=== PATIENT | female | born 1985 | race Caucasian/White ===

== ENCOUNTER → 2016-09-01 | Outpatient (CLI) | payer MEDICAID ==
[~2016-09-01] MED LIST: AZIT-21 PO; BROM473L42 PO
--- OUTSIDE RECORDS SUMMARY | 2016-09-01 13:05 | XMS REPORT | Continuity of Care Document ---
Author Author [facility] Organization [facility] Address Unknown Phone Unavailable Care Team Providers Care Air Cargo Agent Name Role Phone CRISTO KNIGHT DO PCP Insurance Providers Payer Name Policy Number Subscriber Name Relationship Self Pay Cristel Hayes [id number] Self / Same As Patient Advance Directives Directive Response Recorded Date/Time Advance Directives No 06/10/14 11:25am Resuscitation Status Full Code 06/10/14 11:25am Problems Medical Problems Problem Onset Date Status Viral URI with cough Unknown Active Medications Medication Dose Route Sig Days/Qty Instructions Order Date Discontinued Date Status Brompheniram/Phenylephrine/Dm 10 Ml PO EVERY 8HRS PRN CONGESTION 120 Qty 06/10/14 Active Azithromycin (Zpak) 2 Tab PO TODAY 6 Qty 2 tabs by mouth on day 1, then 1 tab by mouth daily 4 days 06/10/14 Active Social History Social History Problem Response Recorded Date/Time Alcohol Use Occasionally Uses 06/10/2014 11:25am Recreational Drug Use No 06/10/2014 11:25am Recent Foreign Travel No 06/10/2014 11:21am Smoking Status Never a Smoker 06/10/2014 11:25am Query Response Start Date Stop Date Smoking Status Never a Smoker Hospital Discharge Instructions No hospital discharge instructions. Plan of Care No plan of care. Functional Status No functional status results. Allergies, Adverse Reactions, Alerts Allergen Type Severity Reaction Status Last Updated No Known Drug Allergies Active 06/10/14 Immunizations Name Given Type Date of Influenza Vaccine 03/28/14 Historical Vital Signs Acute Vital Signs Vital Response Date/Time Temperature (Fahrenheit) 97 degrees F (97.6 - 99.5) Temperature (Calculated Celsius) 36.1140 degrees C (36.4 - 37.5) Temperature Source Temporal Pulse Rate (adult) 121 bpm (60 - 90) Respiratory Rate 18 bpm (12 - 24) O2 Sat by Pulse Oximetry 98 % (88 - 100) Blood Pressure 152/101 mm Hg Pain Pain Intensity 5 Height (Feet) 5 feet Height (Inches) 3 inches Height (Calculated Centimeters) 160.165763 cm Weight (Pounds) 290 pounds Weight (Calculated Kilograms) 131.115649 kilograms Calculated BMI 51.37 Results No known relevant diagnostic tests, laboratory data and/or discharge summary. Procedures No known history of procedures. Encounters Encounter Location Date/Time Departed Emergency Room [facility] 06/10/14 10:35am Recent Diagnosis
--- NOTE | 2016-09-01 18:56 | Diagnostic Imaging Report ---
OB ultrasound. INDICATION: survey. There are no prior studies available for comparison. Reportedly, the patient has had a previous OB ultrasound exam which suggests that the estimated gestational age of the fetus was 18 weeks plus or minus one week. On this study, there is a single live fetus in cephalic presentation. heart motion was noted and a rate of 155 BPM was recorded. There were no abnormalities identified. The growth parameters are fairly uniform. The growth parameters are as follows: BPD: 4.46, 19 weeks 4 days Head Circumference: 16.55 19 weeks 2 days Abdominal circumference: 12.93 18 weeks 4 days Femur length: 2.88. The estimated weight is 255 gm plus or minus 37 g. The LMP percentile is 38%. The sonographic EDC by this exam is 01/25/2017. The placenta is posterior and there is no previa. The amniotic fluid volume is within normal limits. The cervix was identified and measures 3.9 cm in length. IMPRESSION: 1. There is a single live fetus approximately 19 weeks 1 day gestation plus or minus 1.5 weeks. EDC is 01/25/2017. 2. There are no abnormalities identified. 3. The growth parameters are fairly uniform. The estimated weight is in the 38th percentile. Dictated by: Dictated on workstation # [id number]
== END ==
LOC: RAD 13:01
PROVIDERS: ATTEND Obstetrics & Gynecology
DX: Z36 Encounter for antenatal screening of mother (principal); Z3A.19 19 weeks gestation of pregnancy
CPT/HCPCS: 76805

== ENCOUNTER → 2016-09-29 | Outpatient (CLI) | payer MEDICAID ==
--- NOTE | 2016-09-29 19:24 | Diagnostic Imaging Report ---
EXAMINATION: OB ultrasound. INDICATION: Check growth. FINDINGS: The previous OB ultrasound exam of 09/01/2016 noted a single live fetus of approximately 19 weeks 1 day gestation +/- 1 week. On this exam, the fetus is again visualized. The fetus is cephalic in presentation. heart motion is noted and a rate of 133 bpm is recorded. There are no abnormalities identified. The growth parameters are fairly uniform. The growth parameters are as follows: BPD: 5.79, 23 weeks 6 days. Head circumference: 21.28, 23 weeks 3 days. Abdominal circumference: 18.39, 23 weeks 2 days. Femur length: 4.20, 23 weeks 5 days. The estimated weight is 593 g. The LMP percentile is 71%. On the prior exam, the LMP percentile was 38%. The placenta is posterior and there is no previa. The amniotic fluid volume is not calculated, but the amniotic fluid appears to be within normal limits. The cervix is visualized. There is a suggestion of some funneling of the fluid into the cervix. The cervix measures approximately 3.1 cm in length (normal 3 cm or greater). IMPRESSION: 1. There is a single live fetus of approximately 23 weeks 1 day gestation, +/- 1.5 weeks. The EDC remains January 25, 2017. 2. The growth parameters have progressed as expected since the prior study tending towards the higher side of normal. 3. There is a suggestion of some funneling of the fluid into the cervix. The length of the cervix is still within normal limits, but it may prove worthwhile to have a short-term (2-4 weeks) follow-up ultrasound exam for further evaluation of this finding. 4. These results were discussed with Dr. Manda Kurtz. Dictated by: Dictated on workstation # [id number]
== END ==
LOC: RAD 13:11
PROVIDERS: ATTEND Obstetrics & Gynecology
DX: E51.9 Thiamine deficiency, unspecified (principal); Z98.84 Bariatric surgery status
CPT/HCPCS: 76816

== ENCOUNTER → 2016-11-25 | Outpatient (CLI) | payer MEDICAID ==
--- NOTE | 2016-11-25 17:02 | Diagnostic Imaging Report ---
INDICATION: Assess dates. TECHNIQUE: Multiple real-time grayscale images were obtained over the gravid uterus. COMPARISON: 09/29/2016. FINDINGS: See below for measurements. Biometrical measurements are as follows: Biparietal 8.2 cm, age 32 weeks 6 days. Head circumference 29.3 cm, age 32 weeks 3 days. Abdominal circumference 28.6 cm, age 32 weeks 5 days. Femur length 6.2 cm, age 32 weeks 0 days. Sonographic estimate age: 32 weeks 4 days. Sonographic estimated date of delivery: 01/16/17. Estimated Weight: 1961 gm (+/- 286 gm). LMP percentile: 83%. heart rate: Cardiac motion is identified, however, the heart rate was not assessed. number: 1 of 1. IMPRESSION: 1. growth measurements are as above. Dictated by: Dictated on workstation # [id number]
== END ==
LOC: RAD 13:05
PROVIDERS: ATTEND Obstetrics & Gynecology
DX: O99.843 Bariatric surgery status complicating pregnancy, third trimester (principal); Z90.3 Acquired absence of stomach [part of]; Z3A.32 32 weeks gestation of pregnancy
CPT/HCPCS: 76816

== ENCOUNTER 2017-01-20 05:44 | Inpatient (IN) | payer MEDICAID ==
[~2017-01-20] VITALS: Ht 157.5 cm; Wt 76.2 kg
[2017-01-20] VITALS (32 sets, daily range): BP systolic 109–153; BP diastolic 58–97
[~2017-01-20 05:44] MED LIST changes: +D5 LR IV SOLUTION 1,000 ML IV ONE
[2017-01-20] MEDS ORDERED: D5 LR IV SOLUTION 1,000 ML IV SCH (05:48)
[2017-01-20] MEDS ORDERED: OXYTOCIN/NORMAL SALINE 500 ML IV SCH ×2 (05:48→14:03)
[2017-01-20] MEDS ORDERED: MINERAL OIL CONCENTRATE 99.9% 15 ML UDC TOP PRN (06:00)
[2017-01-20] MEDS ORDERED: CATHETER FLUSH 10 ML SYR IV SCH (06:00)
[2017-01-20 06:28] LABS: BASOPHILS % (AUTO) 0 % (0-10); EOSINOPHILS % (AUTO) 0 % (0-10); LYMPHOCYTES # (AUTO) 1.5 X 10^3 (1.0-4.0); LYMPHOCYTES % (AUTO) 22 % (12-44); MEAN CORPUSCULAR HEMOGLOBIN 30 PG (25-34); MEAN CORPUSCULAR HGB CONC 33 G/DL (32-36); MEAN CORPUSCULAR VOLUME 90 FL (80-99); MEAN PLATELET VOLUME 11.9 FL (7.4-10.4); MONOCYTES # (AUTO) 0.8 X 10^3 (0.0-1.0); MONOCYTES % (AUTO) 11 % (0-12); NEUTROPHILS # (AUTO) 4.6 X 10^3 (1.8-7.8); NEUTROPHILS % (AUTO) 66 % (42-75); PLATELET COUNT 211 10^3/uL (130-400); RED BLOOD COUNT 3.99 10^6/uL (4.35-5.85); RED CELL DISTRIBUTION WIDTH 13.9 % (10.0-14.5)
[2017-01-20] MEDS ORDERED: SUFENTA 0.6MCG/ML BUPIVA 0.125 100 ML ONE (06:53)
[2017-01-20] MEDS ORDERED: PREN-37 PO (06:56)
[2017-01-20] MEDS ORDERED: CALC600T12 PO (06:59)
[2017-01-20] MEDS ORDERED: FERR-84 PO (06:59)
[2017-01-20] MEDS ORDERED: BUPIVACAINE 0.25% 30 ML (SENSORCAINE) VIAL ONE (07:10)
[2017-01-20] MEDS ORDERED: LACTATED RINGERS 1,000 ML IV ONE (07:47)
[2017-01-20] MEDS ORDERED: EPIDURAL (SUFENTA 0.6MCG/ML BUPIVA 0.125%) 100 ML BAG EPI SCH (08:00)
[2017-01-20] MEDS ORDERED: NALOXONE 0.4 MG/ML 1 ML (NARCAN) VIAL IV PRN (08:00)
[2017-01-20] MEDS ORDERED: ONDANSETRON 4 MG/2 ML (SDV) Z0FRAN IV PRN (08:00)
--- NOTE | 2017-01-20 08:22 | History & Physical-OB ---
OB - Chief Complaint & HPI Date/Time Date of Admission: Date of Admission: Jan 20, 2017 at 05:44 Time Seen by Provider: 07:30 Chief Complaint/History OB-Reason for Admission/Chief: Induction of Labor Hx : 4 Hx Para: 2 Expected Date of Delivery: Jan 27, 2017 Gestational Age in Weeks: 39 Other reason for admission: 31 y/o @ 39w0d by L=11, here for elective IOL. c/b recent sleeve gastrectomy with thiamine, calcium and vit D deficiency (corrected) as well as RNI status. Denies complaints this AM. Fetus active, no LOF VB. Occ ctx. History of Labs AB+ Antibody neg RNI Hep B/C neg/neg HIV neg RPR NR GC/CT neg/neg GBS neg Allergies and Home Medications Allergies Coded Allergies: No Known Drug Allergies (Unverified , 06/10/14) Home Medications Calcium Carbonate 600 Mg Tablet, 600 MG PO DAILY, (Reported) Ferrous Sulfate 325 Mg Tablet, 325 MG PO DAILY, (Reported) Vit/Iron Fumarate/FA 1 Each Tablet, 1 EACH PO DAILY, (Reported) OB - History Hx of Present Care: Yes Ultrasounds: Normal mid trimester US Obstetrical Complications: None Medical Complications: Other (see above) Information Induced Hypertension: No Maternal Gestational Diabetes: No Hemorrhage: No Obstetrical History Hx : 4 Hx Para: 2 Patient Past Medical History see above HPI Social History/Family History HIV/AIDS: No Recent Infectious Disease Expo: No Alcohol Use: Denies Use Immunizations Tetanus Booster (TDap): Less than 5yrs Date of Influenza Vaccine: Mar 28, 2014 Rubella: not immune RPR/VDRL: Negative GBS Status: Negative HBsAG: Negative OB - Admission Exam Physical Exam Date Seen by Provider: Jan 20, 2017 Time Seen by Provider: 07:30 Vitals: Vital Signs 01/20/17 07:00 Temp 98.0 B/P (MAP) 120/81 HEENT: NCAT Heart: Rhythm Normal Lungs: Clear Abdomen: Gravid Cervical Dilatation: 5cm Effacement: 75% Station: -1 Membranes: Ruptured Amniotic Fluid: Clear Heart Rate: 130's Accelerations: Accelerations Present Decelerations: No Decelerations Short Term Variability: Present Paint Prep Technician Variability: Average (6-25) Contractions on Admission: 6-10 Minutes Apart Rizvi Scoring Tool (Modified) Dilation (cm): >5cm (3) Effacement (%): 51-79% (2) Descent/Station: -1,0 (2) Cervix Consistency: Soft (2) Cervix Position: Anterior (2) Add 1 point for: Each previous vaginal delivery (1) Rizvi Score: 13 Labs Laboratory Tests Test 01/20/17 06:08 Range/Units White Blood Count 7.0 4.3-11.0 10^3/uL Red Blood Count 3.99 L 4.35-5.85 10^6/uL Hemoglobin 12.0 11.5-16.0 G/DL Hematocrit 36 35-52 % Mean Corpuscular Volume 90 80-99 FL Mean Corpuscular Hemoglobin 30 25-34 PG Mean Corpuscular Hemoglobin Concent 33 32-36 G/DL Red Cell Distribution Width 13.9 10.0-14.5 % Platelet Count 211 130-400 10^3/uL Mean Platelet Volume 11.9 H 7.4-10.4 FL Neutrophils (%) (Auto) 66 42-75 % Lymphocytes (%) (Auto) 22 12-44 % Monocytes (%) (Auto) 11 0-12 % Eosinophils (%) (Auto) 0 0-10 % Basophils (%) (Auto) 0 0-10 % Neutrophils # (Auto) 4.6 1.8-7.8 X 10^3 Lymphocytes # (Auto) 1.5 1.0-4.0 X 10^3 Monocytes # (Auto) 0.8 0.0-1.0 X 10^3 Eosinophils # (Auto) 0.0 0.0-0.3 10^3/uL Basophils # (Auto) 0.0 0.0-0.1 10^3/uL OB - Assessment/Plan/Diagnosis Plan Plan: Induction Other Plan 31 y/o @ 39w0d here for elective IOL GBS neg RNI H/o sleeve gastrectomy close interval to with thiamine, vit D and calcium deficiencies - corrected, adequate growth AROM with clear fluid Will augment with pitocin if no change ASVD HAYLEY OREILLY MD Jan 20, 2017 08:22
--- NOTE | 2017-01-20 12:20 | OB Labor & Delivery Record ---
Vag Delivery Note Vag Delivery Note Date of Delivery: 01/20/17 Preoperative Diagnosis: Nydia Carey is a 31 y/o @ 39w0d with elective IOL, GBS neg Postoperative Diagnosis: Same Surgeon: Hayley Kurtz MD Anesthesia: Epidural Delivery Type: Spontaneous vaginal delivery Findings: Viable male infant, apgars 9/9, weight 8lb1oz Lacerations: periclitoral abrasion, hemostatic Intact placenta with 3 vessel cord. No nuchal cord, body cord or shoulder dystocia Estimated Blood Loss: 300 ml Complications: None Condition: Stable Description of Procedure: The patient is a 31 y/o who presented @ 39w0d for elective IOL. She was admitted and informed consent was obtained. Her labor course was remarkable for epidural for analgesia, AROM with clear fluid and pitocin for induction. She progressed to complete dilatation and began to push. She was then set up for delivery. The 's head was delivered atraumatically in the occiput anterior position. The shoulders and remainder of the infant's body were then delivered without difficulty. Upon delivery, the head was held below the level of the perineum and the mouth and nares were bulb suctioned. The cord was doubly clamped and cut after a pause of 30-60 seconds during which he was placed on his mother's chest. An intact placenta with 3- vessel cord delivered via [place] and there was found to be minimal bleeding. Vigorous fundal massage was performed and the fundus was found to be firm. IV oxytocin was given. Examination of the vagina and perineum revealed a small periclitoral abrasion which was hemostatic. Following the repair, sponge, instrument and needle counts were correct. Mom and baby were both in stable condition in the labor suite. Vitals - Labs Vital Signs - I&O Vital Signs Date Time Temp Pulse Resp B/P (MAP) Pulse Ox O2 Delivery O2 Flow Rate FiO2 01/20/17 11:55 98.5 109 18 128/60 Room Air 01/20/17 11:40 98.2 95 18 114/70 Room Air 01/20/17 11:25 98.1 95 20 115/72 Room Air 01/20/17 11:10 95 20 116/72 Room Air 01/20/17 10:55 110 20 121/77 Room Air 01/20/17 10:40 98 20 121/80 Room Air 01/20/17 10:25 90 18 115/77 Room Air 01/20/17 10:10 96 18 113/70 Room Air 01/20/17 09:55 89 18 116/72 99 Room Air 01/20/17 09:40 90 18 109/66 99 Room Air 01/20/17 09:25 95 18 113/75 99 Room Air 01/20/17 09:10 101 16 110/71 99 Room Air 01/20/17 08:55 89 16 111/73 99 Room Air 01/20/17 08:40 89 18 115/72 99 Room Air 01/20/17 08:23 88 18 113/69 99 Room Air 01/20/17 08:05 90 16 121/72 99 Room Air 01/20/17 08:00 89 16 123/77 99 Room Air 01/20/17 07:55 129 18 113/77 99 Room Air 01/20/17 07:50 125 16 116/75 99 Room Air 01/20/17 07:45 86 16 119/75 99 Room Air 01/20/17 07:40 101 16 121/84 100 Room Air 01/20/17 07:34 98 18 122/86 100 Room Air 01/20/17 07:31 93 20 123/84 100 Room Air 01/20/17 07:25 87 20 117/74 100 Room Air 01/20/17 07:22 97.8 88 20 120/77 100 Room Air 01/20/17 07:00 98.0 120/81 01/20/17 06:30 98.3 126/74 Labs Laboratory Tests 01/20/17 06:08: White Blood Count 7.0, Red Blood Count 3.99L, Hemoglobin 12.0, Hematocrit 36, Mean Corpuscular Volume 90, Mean Corpuscular Hemoglobin 30, Mean Corpuscular Hemoglobin Concent 33, Red Cell Distribution Width 13.9, Platelet Count 211, Mean Platelet Volume 11.9H, Neutrophils (%) (Auto) 66, Lymphocytes (%) (Auto) 22 , Monocytes (%) (Auto) 11, Eosinophils (%) (Auto) 0, Basophils (%) (Auto) 0, Neutrophils # (Auto) 4.6, Lymphocytes # (Auto) 1.5, Monocytes # (Auto) 0.8, Eosinophils # (Auto) 0.0, Basophils # (Auto) 0.0 HAYLEY KURTZ MD Jan 20, 2017 12:20
[2017-01-20] MEDS ORDERED: DOCU-143 PO (13:28)
[2017-01-20] MEDS ORDERED: IBUP-1773 PO (13:28)
--- NOTE | 2017-01-20 13:33 | Discharge Inst-Women's Service ---
Discharge Inst-Women's Serv Depart Medication/Instructions New, Converted or Re-Newed RX: Transmitted to Pharmacy Final Diagnosis TIUP, elective IOL, Consults/Follow Up Additional Follow Up: Yes Orders/Referrals [address] Suarez, Dr. Thompson or Jossy Collins APRN Activity Activity: Activity as Tolerated Driving Instructions: You May Drive NO SMOKING: NO SMOKING Nothing Inside Vagina: No Douching, No Letcher, No Tampons Diet Discharge Diet: No Restrictions Symptoms to Report to : Bleeding Excessive, Pain Increased, Fever Over 101 Degrees F, Pain/Pressure in Chest, Vaginal Bleeding Increase, Dizziness/Fainting , Nausea/Vomiting, Shortness of Breath For Any Problems or Questions: Contact Your Physician, Go to Emergency Room HAYLEY OREILLY MD Jan 20, 2017 13:33
[2017-01-20] MEDS ORDERED: TETANUS,DIPTH,PERTUSS P/F (BOOSTRIX) 0.5 ML VIAL IM ONE (14:15)
[2017-01-20] MEDS ORDERED: MEASLES,MUMPS,RUBELLA 1 EA INJ SQ ONE (14:15)
[2017-01-20] MEDS ORDERED: WITCH HAZEL(TUCKS) 40 EA JAR TOP PRN (14:15)
[2017-01-20] MEDS ORDERED: BENZOCAINE/MENTHOL (DERMOPLAST) 56 ML CAN TP PRN (14:15)
[2017-01-20] MEDS: IBUPROFEN 600 MG (MOTRIN) TAB PO SCH ×2 (15:45→21:05)
[2017-01-20] MEDS: DOCUSATE SODIUM 100 MG (COLACE) CAP PO SCH (21:05)
[2017-01-21 00:15] VITALS: BP 103/60
[2017-01-21 04:25] VITALS: BP 108/71
[2017-01-21] MEDS: IBUPROFEN 600 MG (MOTRIN) TAB PO SCH ×3 (04:28→16:11)
[2017-01-21] MEDS ORDERED: PRENATAL VITAMIN 1 EA TAB PO SCH (07:00)
--- NOTE | 2017-01-21 07:32 | Progress Note-Standard ---
Standard Progress Note Progress Notes/Assess & Plan Date Seen by Provider: Jan 21, 2017 Time Seen by Provider: 09:30 Progress/Assessment & Plan Patient doing well PPD 1 NVD. Reports no overall concerns, lochia is light. Pain well controlled. Ambulating and voiding freely. She is concerned about a bulg down the middle of her buttocks. Vital Sign - Last 24 Hours 01/20/17 01/20/17 01/20/17 01/20/17 07:34 07:40 07:45 07:50 Pulse 98 101 86 125 Resp 18 16 16 16 B/P (MAP) 122/86 121/84 119/75 116/75 Pulse Ox 100 100 99 99 O2 Delivery Room Air Room Air Room Air Room Air 01/20/17 01/20/17 01/20/17 01/20/17 07:55 08:00 08:05 08:23 Pulse 129 89 90 88 Resp 18 16 16 18 B/P (MAP) 113/77 123/77 121/72 113/69 Pulse Ox 99 99 99 99 O2 Delivery Room Air Room Air Room Air Room Air 01/20/17 01/20/17 01/20/17 01/20/17 08:40 08:55 09:10 09:25 Pulse 89 89 101 95 Resp 18 16 16 18 B/P (MAP) 115/72 111/73 110/71 113/75 Pulse Ox 99 99 99 99 O2 Delivery Room Air Room Air Room Air Room Air 01/20/17 01/20/17 01/20/17 01/20/17 09:40 09:55 10:10 10:25 Pulse 90 89 96 90 Resp 18 18 18 18 B/P (MAP) 109/66 116/72 113/70 115/77 Pulse Ox 99 99 O2 Delivery Room Air Room Air Room Air Room Air 01/20/17 01/20/17 01/20/17 01/20/17 10:40 10:55 11:10 11:25 Temp 98.1 Pulse 98 110 95 95 Resp 20 20 20 20 B/P (MAP) 121/80 121/77 116/72 115/72 O2 Delivery Room Air Room Air Room Air Room Air 01/20/17 01/20/17 01/20/17 01/20/17 11:40 11:55 12:20 12:35 Temp 98.2 98.5 98.4 Pulse 95 109 93 88 Resp 18 18 18 18 B/P (MAP) 114/70 128/60 153/97 115/69 O2 Delivery Room Air Room Air Room Air Room Air 01/20/17 01/20/17 01/20/17 01/21/17 12:47 14:10 21:05 00:15 Temp 99.7 98.7 Pulse 93 78 107 78 Resp 20 20 18 18 B/P (MAP) 131/67 112/58 128/81 103/60 Pulse Ox 98 97 O2 Delivery Room Air Room Air Room Air Room Air 01/21/17 04:25 Temp 97.9 Pulse 77 Resp 18 B/P (MAP) 108/71 Pulse Ox 99 O2 Delivery Room Air Uterine fundus firm and below umbilicus There is a fissue that does not appear inflamed or infected on evaluation. Laboratory Tests Test 01/21/17 08:09 Range/Units White Blood Count 8.6 4.3-11.0 10^3/uL Red Blood Count 3.68 L 4.35-5.85 10^6/uL Hemoglobin 11.2 L 11.5-16.0 G/DL Hematocrit 34 L 35-52 % Mean Corpuscular Volume 91 80-99 FL Mean Corpuscular Hemoglobin 30 25-34 PG Mean Corpuscular Hemoglobin Concent 33 32-36 G/DL Red Cell Distribution Width 13.9 10.0-14.5 % Platelet Count 167 130-400 10^3/uL Mean Platelet Volume 11.6 H 7.4-10.4 FL Neutrophils (%) (Auto) 80 H 42-75 % Lymphocytes (%) (Auto) 13 12-44 % Monocytes (%) (Auto) 7 0-12 % Eosinophils (%) (Auto) 1 0-10 % Basophils (%) (Auto) 0 0-10 % Neutrophils # (Auto) 6.9 1.8-7.8 X 10^3 Lymphocytes # (Auto) 1.1 1.0-4.0 X 10^3 Monocytes # (Auto) 0.6 0.0-1.0 X 10^3 Eosinophils # (Auto) 0.0 0.0-0.3 10^3/uL Basophils # (Auto) 0.0 0.0-0.1 10^3/uL Diagnosis: PPD 1 NVD GBS neg RNI H/o sleeve gastrectomy close interval to with thiamine, vit D and calcium deficiencies - corrected, adequate growth Anticipate dc later today HAI ONEAL DO Jan 21, 2017 7:32 am
[2017-01-21] MEDS: DOCUSATE SODIUM 100 MG (COLACE) CAP PO SCH (07:44)
[2017-01-21 08:00] VITALS: BP 116/64
--- NOTE | 2017-01-21 08:10 | Anesthesia-Regional Post-Op ---
Regional Patient Condition Mental Status: Alert, Oriented x3 Circulation: Same as Pre-Op Headache: Absent Sensation: Full Recovery Motor Block: Absent Post Op Complications Complications None Follow Up Care/Instructions Patient Instructions None needed. Anesthesia/Patient Condition Patient is doing well, no complaints, stable vital signs, no apparent adverse anesthesia problems. No complications reported per nursing. MARIBELL DIXON CRNA Jan 21, 2017 08:10
[2017-01-21 08:16] LABS: BASOPHILS % (AUTO) 0 % (0-10); EOSINOPHILS % (AUTO) 1 % (0-10); LYMPHOCYTES # (AUTO) 1.1 X 10^3 (1.0-4.0); LYMPHOCYTES % (AUTO) 13 % (12-44); MEAN CORPUSCULAR HEMOGLOBIN 30 PG (25-34); MEAN CORPUSCULAR HGB CONC 33 G/DL (32-36); MEAN CORPUSCULAR VOLUME 91 FL (80-99); MEAN PLATELET VOLUME 11.6 FL (7.4-10.4); MONOCYTES # (AUTO) 0.6 X 10^3 (0.0-1.0); MONOCYTES % (AUTO) 7 % (0-12); NEUTROPHILS # (AUTO) 6.9 X 10^3 (1.8-7.8); NEUTROPHILS % (AUTO) 80 % (42-75); PLATELET COUNT 167 10^3/uL (130-400); RED BLOOD COUNT 3.68 10^6/uL (4.35-5.85); RED CELL DISTRIBUTION WIDTH 13.9 % (10.0-14.5); WHITE BLOOD COUNT 8.6 10^3/uL (4.3-11.0)
[2017-01-21] MEDS ORDERED: FERROUS SULF 325 MG (IRON) TAB PO SCH (09:00)
[2017-01-21 12:00] VITALS: BP 122/64
[2017-01-21] MEDS: CATHETER FLUSH 10 ML SYR IV SCH (13:33)
[2017-01-21 16:00] VITALS: BP 128/71
== END 2017-01-21 17:05 | disposition home or self-care (01) | DRG 775 ==
LOC: LDRP 05:44
PROVIDERS: ADMIT Obstetrics & Gynecology; ATTEND Obstetrics & Gynecology
PROC: 10E0XZZ Delivery of Products of Conception, External Approach (ICD-10-PCS; principal; 2017-01-20)
DX: O99.843 Bariatric surgery status complicating pregnancy, third trimester (principal); Z90.3 Acquired absence of stomach [part of]; E51.9 Thiamine deficiency, unspecified; E55.9 Vitamin D deficiency, unspecified; Z3A.39 39 weeks gestation of pregnancy; Z37.0 Single live birth
CPT/HCPCS: 36415; 85025; 86850; 86900; 86901